=== PATIENT | female | born 1975 | race Caucasian/White ===

== ENCOUNTER 2017-12-18 09:29 | Day surgery (SDC) | payer OTHER ==
[2017-12-18 10:46] LABS: MPV 7.9 fL (7.6-11.3)
[2017-12-18 11:07] LABS: Platelet Estimate INCR
[2017-12-18 11:08] LABS: Platelets, Giant FEW
--- NOTE | 2017-12-18 13:21 | RAD REPORT ---
EXAM DESCRIPTION: RAD - Lumbar Puncture For Dx - 12/18/2017 1:08 pm CLINICAL HISTORY: H47.11 COMPARISON: No comparisons TECHNIQUE: The procedure, risks and alternatives to the procedure were discussed with the patient in detail. After answering all questions, both oral and written consent were obtained. Time-out procedu re was performed. The patient was placed in an oblique prone position on the fluoroscopic table. The skin of the lower back was prepped and draped in the usual sterile fashion. After anesthetizing the skin and deeper sof t tissues with 1% lidocaine, a 22 gauge needle was advanced into the thecal sac at the L5-S1 level. Opening pressure was normal, approximately 13. 15 cc of clear CSF was obtained. At the conclusion of the procedure the needle was withdrawn and a sterile bandage placed over the pun cture site. The patient tolerated the procedure well without immediate complications. Total fluoro time: 0.8 minutes Images obtained: 2 IMPRESSION: Successful fluoroscopic guided lumbar puncture. All obtained fluid was sent to the lab f or studies requested by the referring physician.
[2017-12-18 14:01] LABS: CSF Glucose 61 mg/dL (40-70)
[2017-12-18 14:19] LABS: Appearance CLEAR (CLEAR); Body Fluid Source CSF; Color of fluid Colorless (COLORLESS)
[2017-12-18 14:32] LABS: Fluid Total Volume 14 ml
[2017-12-18 14:36] LABS: Body Fluid WBC 0 /mm^3
== END 2017-12-18 14:40 | disposition home or self-care (01) ==
LOC: RAD 09:29 → EDSTATUS 11:00 → RAD 14:40
PROVIDERS: ATTEND Internal Medicine
PROC: 009U3ZX Drainage of Spinal Canal, Percutaneous Approach, Diagnostic (ICD-10-PCS; principal; 2017-12-18)
DX: H47.11 Papilledema associated with increased intracranial pressure (principal)
CPT/HCPCS: 36415; 62270; 77003; 82945; 84157; 85049; 85610; 85730; 87070; 89050